=== PATIENT | male | born 1985 | race Caucasian/White ===

== ENCOUNTER 2017-06-07 15:23 | Emergency (ER) | payer SELFPAY ==
[~2017-06-07] VITALS: Ht 167.6 cm; Wt 70.0 kg
[2017-06-07] MEDS ORDERED: KETOROLAC 60MG/2ML VIAL IM STA (16:33)
[2017-06-07] MEDS ORDERED: LIDOCAINE HCL 1%/EPI 1:200,000 30 ML VIAL MC ONE (16:45)
[2017-06-07] MEDS ORDERED: BACITRACIN ZINC OINT UDPKT TOP ONE (16:45)
[2017-06-07 20:13] VITALS: BP 111/84
== END 2017-06-07 20:13 | disposition home or self-care (01) ==
LOC: ER 15:53
DX: S71.112A Laceration without foreign body, left thigh, initial encounter (principal); W45.8XXA Other foreign body or object entering through skin, initial encounter; Y93.89 Activity, other specified; Y92.89 Other specified places as the place of occurrence of the external cause; Y99.8 Other external cause status
CPT/HCPCS: 12004; 73552; 96372; 99284; J1885; X7700; Z7610